=== PATIENT | male | born 1965 | race Two or more races ===

== ENCOUNTER 2021-03-27 10:16 | Outpatient (CLI) | payer OTHER | END 2021-03-27 10:20 | disposition home or self-care (01) | LOC: LAB 10:16 | PROVIDERS: ATTEND Urology | DX: R97.20 Elevated prostate specific antigen [PSA] (principal) ==

== ENCOUNTER 2021-05-24 07:53 | Outpatient (CLI) | payer OTHER | END 2021-05-24 08:03 | disposition home or self-care (01) | LOC: SONOGRAMA 07:53 | PROVIDERS: ATTEND Urology | DX: R97.20 Elevated prostate specific antigen [PSA] (principal) ==

== ENCOUNTER 2021-08-20 10:15 | Inpatient (IN) | payer OTHER ==
[~2021-08-20] VITALS: Ht 152.4 cm; Wt 68.9 kg
[2021-08-20] MEDS ORDERED: NEOMYCIN PO (14:22)
[2021-08-21] MEDS ORDERED: NEOMYCIN-POLY-G10 ML (07:55)
== END 2021-08-23 08:26 | disposition home or self-care (01) | DRG 708 ==
LOC: O/R 08-21 06:09 → SURH 08-21 10:15
PROVIDERS: ADMIT Urology; ATTEND Urology
PROC: 0VT00ZZ Resection of Prostate, Open Approach (ICD-10-PCS; 2021-08-21)
PROC: 0VT30ZZ Resection of Bilateral Seminal Vesicles, Open Approach (ICD-10-PCS; 2021-08-21)
PROC: 07TC0ZZ Resection of Pelvis Lymphatic, Open Approach (ICD-10-PCS; principal; 2021-08-21 11:00)
DX: C61 Malignant neoplasm of prostate (principal)